=== PATIENT | male | born 1960 | race Caucasian/White ===

== ENCOUNTER 2022-07-15 07:58 | Outpatient (CLI) | payer OTHER, SELFPAY ==
--- NOTE | 2022-07-15 08:45 | MR_ITS ---
WS: [id number] MRI LUMBAR SPINE NONCONTRAST HISTORY: M54.50 - Low back pain, unspecified, pain down both legs. Trauma 03/17/2022. COMPARISON: None available. TECHNIQUE: Sagittal and axial multisequence imaging is submitted. Thoracolumbar curvature and scoliosis. Upper thoracic curvature to the LEFT. There is mild anterior w edging of T3 and T4 without retropulsion. Very mild RIGHT curvature lumbar spine. 40 % loss of height of L3 with increased T2 signal and low si gnal on the T1 sequences. Consistent with acute to subacute fracture. No retropulsion. No edema withi n the posterior elements. There is increase fluid in the facet joints of L3-4. Maybe related to the r ecent trauma or synovitis. Disc spaces are well preserved. Conus terminates normally at L1-2 disc level. L1-L2: Normal. L2-L3: Mild annular disc bulging with no focal disc protrusion. Mild ligamentum flavum and facet arth ritis. There is mild central, bilateral subarticular recess and foraminal encroachment. L3-L4: Diffuse annular disc bulging with central disc protrusion and annular fissures. Moderate ligam entum flavum and facet arthritis. Moderate central and bilateral subarticular recess stenosis. Most s ignificant encroachment upon the traversing L4 nerve roots. L4-L5: Mild annular disc bulging. There is very slight anterolisthesis of L4 by 3 mm. Very small cent ral disc protrusion. There are annular fissures within the disc. Mild ligamentum flavum and marked fa cet joint arthritis. Moderate central and bilateral subarticular recess encroachment. No foraminal st enosis. Most significant encroachment upon the traversing L5 nerve roots. L5-S1: Mild annular disc bulging with mild facet joint arthritis. No stenosis. Paravertebral soft tissues are negative. MR/MR lumbar spine wo con* [id number] IMPRESSION: 1. Acute 40% compression fracture L3 without retropulsion. 2. Moderate central and bilateral subarticular recess stenosis at L3-4. 3. Moderate central and bilateral subarticular recess encroachment at L4-5. 4. Mild central, bilateral subarticular recess and foraminal stenosis at L2-3. 5. Mild anterior wedging of T3 and T4. Indeterminate minimal compression fract ures, 10-20%. 6. Increased fluid in the facet joints at L3-4.
== END 2022-07-15 07:59 | disposition home or self-care (01) ==
LOC: RAD 07:58
PROVIDERS: Family Provider Nurse Practitioner Family; PCP Nurse Practitioner Family; Visit Provider Nurse Practitioner
DX: S32.039A Unspecified fracture of third lumbar vertebra, initial encounter for closed fracture (principal); M48.061 Spinal stenosis, lumbar region without neurogenic claudication; X58.XXXA Exposure to other specified factors, initial encounter
CPT/HCPCS: 72148